=== PATIENT | male | born 1985 | race Caucasian/White ===

== ENCOUNTER → 2018-02-04 06:21 | Outpatient (CLI) | payer OTHER, SELFPAY ==
--- NOTE | 2018-02-04 18:52 | STRESSREP ---
Stress Test Report Exercise myocardial perfusion stress test. 32-year-old man with a history of chest pain. Stress protocol: Resting EKG demonstrates normal sinus rhythm with a rate of 64 bpm normal intervals and noted resting blood pressure is 120/88 mmHg. The patient exercised according to the regular Kishore protocol for total duration of 10 minutes and 31 seconds. The maximum heart rate attained was 173 bpm which was 91% of maximum predicted heart rate the maximum workload attained was 12.5 metabolic equivalents. The resting blood pressure is 120/88 mmHg with a peak blood pressure 140/84 mmHg. At rest and during exercise there were upsloping ST changes with no meet the criteria for ischemia. T-wave inversions were noted during recovery in lead III. Myocardial perfusion protocol. 14.6 mCi of technetium 99m sestamibi was injected at rest. Patient exercised according to the regular Kishore protocol for 10 minutes and 31 seconds. At peak exercise 44.7 mCi of technetium 99m sestamibi was injected stress images were obtained stress and rest images were reconstructed and compared in the short axis vertical long and horizontal long axis. Gated images were also obtained. Perfusion SPECT analysis: Review of the stress images demonstrate normal uptake of tracer noted in all areas of the myocardium. The resting images similarly demonstrate normal uptake of tracer noted in all areas of the myocardium. No reversibility is noted suggest ischemia. Gated SPECT analysis: The gated ejection fraction is noted to be 64%. Conclusion: Normal exercise myocardial perfusion stress test at a high workload. Preserved ejection fraction.
== END ==
PROVIDERS: Family Provider Family Medicine; PCP Family Medicine; Visit Provider Family Medicine
DX: R07.9 Chest pain, unspecified (principal)
CPT/HCPCS: 78452; 93017; A9500; A4216

== ENCOUNTER 2021-05-07 12:42 | Emergency (ER) | payer OTHER, SELFPAY ==
[2019-04-14 16:11] VITALS: BMI 33.6
[2021-05-07 12:42] VITALS: BP 105/70; PULSE 120; RESP 18; TEMP 37.6; O2SAT 100; BMI 34.5
--- NOTE | 2021-05-07 12:55 | EKG12_ITS ---
Test Reason : CHEST TIGHTNESS Blood Pressure : / mmHG Vent. Rate : 113 BPM Atrial Rate : 113 BPM P-R Int : 156 ms QRS Dur : 082 ms QT Int : 286 ms P-R-T Axes : 054 067 030 degrees QTc Int : 392 ms Sinus tachycardia Otherwise normal ECG Confirmed by JEANIE HERNANDEZ, SANTIAGO ([id number]), adhesive bandage making operator AJAY ROLLINS ([id number]) on 05/08/2021 10:40:03 AM Referred By: MR Confirmed By:SANTIAGO WARE MD
--- NOTE | 2021-05-07 13:34 | RAD_ITS ---
STUDY: X-RAY CHEST REASON FOR EXAM: Male, 36 years old. 2 day history of fever, chills and cough. TECHNIQUE: Single AP portable view of the chest. COMPARISON: None. FINDINGS: EKG electrodes are seen. The lungs are clear and expanded. There is no demonstrated pleural abnormality. Normal size heart. Normal mediastinum and hiram. Normal visualized pulmonary arteries. Normal visualized aortic arch and descending thoracic aorta. Normal visualized thoracic spine. Normal visualized ribs, clavicles, and shoulders. There is no demonstrated abnormality of the visualized soft tissue structures of the upper abdomen. RAD/Chest 1 View (Portable) IMPRESSION: Normal x-ray examination of the chest. Electronically Signed: Clinton Wilkinson MD at 14:50 EDT , Service support ,
[2021-05-07] MEDS: 0.9% Normal Saline 1,000 ML 999 ML IV (13:55)
[2021-05-07] MEDS: Ketorolac 15 MG/ML Vial IV (13:56)
[2021-05-07 14:02] VITALS: BP 113/77; PULSE 117; RESP 18; TEMP 39.8; O2SAT 97
[2021-05-07 14:07] LABS: Absolute Lymphocyte Count 0.53 X10^3/uL (0.83-4.51); Absolute Neutrophil Count 7.7 X10^3/uL (2.0-7.7); Basophil# 0.02 X10^3/uL; Basophil% 0.2 % (0-1); Hematocrit 44.7 % (40-54); Hemoglobin 15.4 g/dL (13.0-16.5); Lymphocyte # 0.53 X10^3/ul (0.83-4.51); Lymphocyte % 5.9 % (19-41); Mean Corp Hgb Conc 34.5 g/dL (32-36); Mean Corpuscular Hgb 30.5 pg (27.0-32.0); Mean Corpuscular Volume 88.5 fL (80-94); Monocyte% 7.8 % (0-10); NRBC Flagged by Analyzer 0 % (0-5); Neutrophil # 7.74 X10^3/uL (2.7-7.7); Neutrophil % 85.8 % (47-70); POSITIVE DIFFERENTIAL YES; Platelet Count 177 K/mm3 (150-450); RBC Distribution Width CV 12.5 % (11.6-14.6); RBC Distribution Width SD 41.3 fl (35.1-43.9); Red Blood Count 5.05 M/mm3 (4.6-6.2)
[2021-05-07 14:08] LABS: Differential Indicated SCAN CRITERIA MET
[2021-05-07 14:25] LABS: ALB/GLOB Ratio 0.9 RATIO (0.9-2.4); AST(SGOT) 40 U/L (15-37); Alanine Aminotransfer ALT/SGPT 69 U/L (16-61); Albumin, Serum 3.8 g/dL (3.2-5.0); Alkaline Phosphatase 64 U/L (45-117); Anion Gap 5 (5-15); BUN 12 mg/dL (7-18); BUN/Creat Ratio 9.3 RATIO (10-20); Calcium,Total 8.7 mg/dL (8.5-10.1); Chloride 98 mmol/L (98-107); Creatinine, Serum 1.29 mg/dL (0.70-1.30); EST Glomerular Filtration Rate 68 mL/min (>60); Est Glom Filt Rate - Afr Amer 82 mL/min (>60); Estimated Creatinine Clearance 85.94 ml/min; Globulin 4.1 g/dL (2.2-4.2); Glucose 118 mg/dL (74-106); Potassium 3.9 mmol/L (3.5-5.1); Protein, Total 7.9 g/dL (6.4-8.2); Sodium Level 132 mmol/L (136-145)
[2021-05-07 14:30] LABS: Lactic Acid 1.3 mmol/L (0.4-1.9)
[2021-05-07 15:00] VITALS: BP 106/69; PULSE 101; RESP 18; TEMP 38.7; O2SAT 96
--- NOTE | 2021-05-07 15:12 | EX.ED.DYSGE1 ---
HPI History of Present Illness Chief Complaint: General Illness Narrative Narrative: Patient presenting for evaluation secondary to a febrile illness. Patient states that over the course of the last 3 to 4 days he has been dealing with fevers that have been increasing in temperature, T-max was 103. States its been associated with frequent cough that is nonproductive, and a generalized headache. He denies any skin rashes. He does endorse a decreased appetite and some nausea but no vomiting. No diarrhea. No abdominal pain. No recent travel, no sick contacts. Patient denies any neck stiffness. Patient denies any history of immunosuppression, he does take weekly allergy shots. Patient states that he had a coronavirus test done over the weekend that was found to be negative. Has been taking Tylenol for treatment of his fevers, but has been continuing to have fevers despite this. Patient was at the primary care office today, they recommended that he come to the emergency department [facility] Medical History Seasonal allergies Home Medications doxycycline hyclate 100 mg PO BID #20 tab 05/07/21 [Rx Last Taken Unknown] Allergy/AdvReac Type Severity Reaction Status Date / Time ibuprofen Allergy Unknown Unknown Verified 05/07/21 12:45 Social History Smoking Status: Never smoker Smokeless tobacco user: chewing tobacco alcohol intake: current alcohol intake frequency: 0-[address] [facility] ED Constitutional Constitutional ED: Reports chills and fever(s) ENT ENT ED: Denies rhinorrhea Cardiovascular Cardiovascular: Denies chest pain Respiratory/Chest Respiratory/Chest: Reports dyspnea Gastrointestinal Gastrointestinal: Reports nausea Genitourinary Genitourinary ED: Denies dysuria or hematuria Musculoskeletal Musculoskeletal: Reports myalgias; Denies neck pain Integumentary Denies rash Neurologic Neurologic: Denies paresthesias or weakness Psychiatric Psychiatric: Denies depression Endocrine Endocrinology: Denies fatigue Allergic/Immunologic Allergic/Immunologic ED: Denies urticaria EXAM Physical Exam Const Vital Signs: 05/07/21 12:42 05/07/21 13:34 05/07/21 14:02 Temperature 99.6 F H 103.6 F H Temperature Source Oral Oral Pulse Rate 120 H 117 H Respiratory Rate 18 18 Respiratory Effort Normal Respiratory Pattern Normal Blood Pressure 105/70 113/77 Blood Pressure Mean 81 89 Pulse Ox 100 97 Oxygen Delivery Method Room Air Room Air 05/07/21 15:00 Temperature 101.7 F H Temperature Source Oral Pulse Rate 101 H Respiratory Rate 18 Respiratory Effort Respiratory Pattern Blood Pressure 106/69 Blood Pressure Mean 81 Pulse Ox 96 Oxygen Delivery Method Room Air Positive well nourished and well developed General Appearance ED: well developed and NAD; Negative for pallor HEENT Reports moist mucous membranes HEENT Narrative: Oropharynx is clear and moist, no evidence of posterior pharyngeal erythema Negative for trauma or tenderness Eyes EOMs intact bilaterally Neck no lymphadenopathy, supple and no JVD Neck Narrative: Negative Brudzinski, Kernig, jolt test no evidence of meningismus Chest Wall inspection of chest normal Resp normal respiratory effort and clear to auscultation bilaterally Cardio regular rhythm, no murmurs and peripheral pulses 2+ throughout Rate: other Other Details: Tachycardic GI normal to inspection, nondistended, normoactive bowel sounds, non-tender and no masses Palpation: soft Back/Spine normal to inspection Extremity normal to inspection General Extremety ED: Negative for tenderness Neuro oriented x3 and no sensory deficits noted Sensorium / Orientation: alert Motor Exam: strength 5/5 throughout Psych mental status grossly normal Skin no rashes or lesions noted General Skin Exam: Negative for jaundice or pallor Lesions: No lesion noted Rashes: No rashes noted MDM MDM MDM Narrative Medical decision making narrative: Patient presented secondary to a febrile illness. He was noted to be febrile and tachycardic upon arrival. IV was established patient was given Toradol, IV fluids and work-up was obtained. Patient has a normal white blood cell count with a neutrophilic predominance. Chemistry panel shows mild hyponatremia at 132, normal renal function. Liver panel was unremarkable. Chest x-ray by my personal review as well as radiology is negative. Repeat coronavirus test was obtained was found to be negative. Influenza test was obtained was found to be negative. Patient had improvement of his heart rate mild improvement of his symptoms on repeat evaluation. Patient's primary care was concerned about the possibility of a arbovirus, such as West Nile. While the patient does have a headache and a fever he does not have confusion or exposure that would make me think that this is the case. Likewise he does not have any history of tick engorgement, or target lesions. He does not have a presentation that would be consistent with meningitis. At this point I do not feel that the patient requires admission. Patient did complain of a cough and although he has a negative chest x-ray, doxycycline is a medication that would provide broad coverage should this be a Arbo borne infection or pneumonia. Patient will be sent home on a course of doxycycline. He was recommended continue conservative management. He was educated on signs and symptoms which to return. Lab Data Labs: Laboratory Results - last 24 hr 05/07/21 05/07/21 05/07/21 13:50 13:50 13:50 WBC 9.0 RBC 5.05 Hgb 15.4 Hct 44.7 MCV 88.5 MCH 30.5 MCHC 34.5 RDW Std Deviation 41.3 RDW Coeff of Anurag 12.5 Plt Count 177 MPV 9.0 Immature Gran % (Auto) 0.300 Neut % (Auto) 85.8 H Lymph % (Auto) 5.9 L [place] % (Auto) 7.8 Eos % (Auto) 0.0 Baso % (Auto) 0.2 Absolute Neuts (auto) 7.7 Absolute Lymphs (auto) 0.53 L Nucleated RBC % 0 Differential Comment COMMENT Sodium 132 L Potassium 3.9 Chloride 98 Carbon Dioxide 29.0 Anion Gap 5 BUN 12 Creatinine 1.29 Estim Creat Clear Calc 85.94 Est GFR (MDRD) Af Amer 82 Est GFR (MDRD) Non-Af 68 BUN/Creatinine Ratio 9.3 L Glucose 118 H Lactic Acid 1.3 Calcium 8.7 Total Bilirubin 0.80 AST 40 H ALT 69 H Alkaline Phosphatase 64 Total Protein 7.9 Albumin 3.8 Globulin 4.1 Albumin/Globulin Ratio 0.9 Radiography Chest X-Ray - ED: 1 View and Normal Diagnostic Testing: Radiology Impression Chest X-Ray 05/07/21 13:34 IMPRESSION: Normal x-ray examination of the chest. Electronically Signed: Clinton Wilkinson MD at 14:50 EDT , Service support , Discharge Plan Triage Chief Complaint: General Illness ED Provider: Mitch Carey Dx/Rx/DC Orders Clinical Impression: Acute febrile illness Instructions: ED FUO Adult Prescriptions: New doxycycline hyclate 100 mg tablet 100 mg PO BID Qty: 20 RF: 0 Primary Care Provider: Phan Alicia Referrals: Phan Alicia MD [Primary Care Provider] - 5-7 Days Disposition Disposition: Home, Self Care
[2021-05-07] MEDS: Acetaminophen 500 MG Tablet 1000 MG PO (15:25)
[2021-05-07] MEDS: Doxycycline 100 MG CAPSULE PO (15:25)
== END 2021-05-07 15:35 | disposition home or self-care (01) ==
PROVIDERS: Emergency Provider Emergency Medicine; PCP Family Medicine
DX: R50.9 Fever, unspecified (principal)
CPT/HCPCS: 71045; 80053; 83605; 85025; 87040; 87426; 87804; 93005; 96361; 96374; 99285; J7030

== ENCOUNTER 2021-05-08 00:05 | Inpatient (IN) | payer OTHER, SELFPAY ==
[2021-05-07 12:42] VITALS: BMI 34.5
[2021-05-08] VITALS (14 sets, daily range): BP systolic 105–143; BP diastolic 68–88; PULSE 70–132; RESP 16–22; TEMP 36.6–39.6; O2SAT 95–100; BMI 34.8; BMI 35.3
--- NOTE | 2021-05-08 | CYSPIN_PTH ---
PATIENT: TOMAS TAFOYA LOC: [facility] U#:[id number] AGE/SX: 36/M ROOM: [facility] RE05/08/[address]: Dr. Lobo Cardona MD : 1985 BED: 1 DIS: 05/09/2021 SPEC #: [id number] RECD: 05/08/21 12:02 STATUS: CARSON NINO #: [id number] TIERRA: 05/08/21 00:[address]: Lobo Cardona DEPT: CYTOLOGY RECD BY: Jose Medina ENTERED: 05/08/21 12:02 SP TYPE: CYSPIN FL OTHR DR: MD Dr. Lawrence Hubbard MD Dr. Scott Brown, MD Tissues: Cerebrospinal Fluid Procedures: Pap Stain (control) Special Stain Group II Cytospin Fluid HEADER OPERATION: Lumbar puncture PRE-OP DIAGNOSIS: Headaches, fever TISSUE SUBMITTED: Cerebrospinal fluid for cytology DIAGNOSIS CYTOLOGY Cerebrospinal fluid for cytology (cytospin): Negative for malignant cells. See comment. AM:charlotte 05/09/2021 COMMENT Polymorphous lymphocytes are identified. Clinical correlation is suggested. CYTOLOGY STUDY Slides are reviewed. CYTOLOGY GROSS Received is 0.5 ml of clear fluid labeled with the patient's name and and designated per the requisition as CSF. Submitted for cytology preparation. / charlotte 05/08/2021 TC:5 CPT: 69267
--- NOTE | 2021-05-08 01:11 | EX.ED.DYSGE1 ---
HPI History of Present Illness Chief Complaint: Fever Narrative Narrative: Patient presents with fever. He was seen earlier this afternoon for fevers. T-max has been 104-1/2. These been going on for 3 to 4 days. He is allergic to ibuprofen so he is taking Tylenol. Had a full work-up here and discharged on doxycycline this afternoon. Work-up was negative including Covid testing influenza testing and chest x-ray. He has a frontal achy headache. He noticed he had a red painful lesion on his right inner thigh in the shower this evening. He has never had that before. No bites. Comes in as his temperatures remain elevated and he does not feel well. [facility] Medical History Seasonal allergies Home Medications doxycycline hyclate 100 mg PO BID #20 tab 05/07/21 [Rx Last Taken Unknown] ergocalciferol (vitamin D2) [Vitamin D2] 1,000 unit PO DAILY 05/08/21 [History Last Taken Unknown] Allergy/AdvReac Type Severity Reaction Status Date / Time ibuprofen Allergy Unknown Unknown Verified 05/08/21 00:05 Social History (Updated 05/08/21 @ 02:18 by Barb Moralez NP-C) household members: spouse housing: house Smoking Status: Never smoker Smokeless tobacco user: chewing tobacco alcohol intake: current alcohol intake frequency: 0-2 drinks per day substance use type: does not use ROS ROS ED ROS Narrative ROS General: See HPI Eyes: Denies visual changes, blurred vision, double vision ENT: Denies ear pain, rhinorrhea, sore throat Cardiovascular: Denies chest pain, palpitations, heart racing Respiratory: Denies dyspnea, cough, sputum, dyspnea on exertion, orthopnea,PND GI: Denies abdominal pain, nausea, vomiting, diarrhea, constipation, melena : Denies dysuria, hematuria, frequency Musculoskeletal: Denies myalgias, arthralgias, neck pain, back pain Skin: See HPI Neuro: Positive weakness of frontal achy headache. Psych: Denies depression, anxiety Endo: Denies polyuria, polydipsia, polyphagia Heme: Denies easy bruising, easy bleeding, lymphadenopathy Allergy: Denies hives, swelling EXAM Physical Exam Narrative Exam Narrative: Vital signs reviewed General: Well-nourished well-developed Head: Normocephalic atraumatic Eyes: Pupils equal round and reactive to light extraocular movements intact ENT: TMs clear no hemotympanum no trauma Neck: Nontender full range of motion Cardiovascular: Regular tachycardia with normal rhythm no murmurs normal S1-S2 Respiratory: No distress clear to auscultation bilaterally chest nontender Abdomen: Soft nontender nondistended normal bowel sounds no masses Back: Nontender no CVA tenderness Extremities: Nontender active range of motion ?4 extremities no trauma Skin: Right inner thigh has a circular cellulitic region. It measures 4 inches x 3 inches. No abscess noted. Neuro alert oriented cranial nerves II through XII intact normal strength sensation reflexes Const Vital Signs: 05/08/21 00:06 05/08/21 00:27 05/08/21 02:04 Temperature 100.8 F H 103.3 F H 103.1 F H Temperature Source Temporal Oral Oral Pulse Rate 132 H 124 H 117 H Respiratory Rate 21 H 22 H 22 H Blood Pressure 143/83 H 134/88 H 117/87 H Blood Pressure Mean 103 103 97 Pulse Ox 98 100 97 Oxygen Delivery Method Room Air Room Air Room Air MDM MDM MDM Narrative Medical decision making narrative: Patient given IV fluids. He is tachycardic and febrile. Given Toradol and Tylenol. Repeat lab work obtained. Given Zosyn for his right inner thigh cellulitis. Lab work shows a white count of 10.5. Neutrophils are 89.8. Sodium 132. But after treatment. At this time the patient has fever with cellulitis in the right thigh. Will be admitted and discussed with the hospitalist Lab Data Labs: Laboratory Results - last 24 hr 05/08/21 05/08/21 01:20 01:20 WBC 10.5 RBC 4.49 L Hgb 13.7 Hct 39.6 L MCV 88.2 MCH 30.5 MCHC 34.6 RDW Std Deviation 39.8 RDW Coeff of Anurag 12.3 Plt Count 153 MPV 9.0 Immature Gran % (Auto) 0.400 Neut % (Auto) 89.8 H Lymph % (Auto) 3.5 L [place] % (Auto) 6.0 Eos % (Auto) 0.0 Baso % (Auto) 0.3 Absolute Neuts (auto) 9.4 H Absolute Lymphs (auto) 0.37 L Nucleated RBC % 0 Sodium 132 L Potassium 4.4 Chloride 100 Carbon Dioxide 25.0 Anion Gap 7 BUN 11 Creatinine 1.07 Estim Creat Clear Calc 103.61 Est GFR (MDRD) Af Amer 102 Est GFR (MDRD) Non-Af 84 BUN/Creatinine Ratio 10.3 Glucose 137 H Calcium 8.5 Discharge Plan Triage Chief Complaint: Fever ED Provider: Jj Arana Dx/Rx/DC Orders Clinical Impression: Acute febrile illness, Cellulitis, Sepsis Prescriptions: No Action doxycycline hyclate 100 mg tablet 100 mg PO BID Qty: 20 RF: 0 Vitamin D2 1,000 unit Capsule 1,000 unit PO DAILY RF: 0 Primary Care Provider: Phan Alicia Referrals: Phan Alicia MD [Primary Care Provider] -
[2021-05-08 01:25] LABS: Absolute Lymphocyte Count 0.37 X10^3/uL (0.83-4.51); Absolute Neutrophil Count 9.4 X10^3/uL (2.0-7.7); Basophil# 0.03 X10^3/uL; Basophil% 0.3 % (0-1); Hematocrit 39.6 % (40-54); Hemoglobin 13.7 g/dL (13.0-16.5); Lymphocyte # 0.37 X10^3/ul (0.83-4.51); Lymphocyte % 3.5 % (19-41); Mean Corp Hgb Conc 34.6 g/dL (32-36); Mean Corpuscular Hgb 30.5 pg (27.0-32.0); Mean Corpuscular Volume 88.2 fL (80-94); Monocyte# 0.63 X10^3/uL; NRBC Flagged by Analyzer 0 % (0-5); Neutrophil # 9.44 X10^3/uL (2.7-7.7); Neutrophil % 89.8 % (47-70); POSITIVE DIFFERENTIAL YES; Platelet Count 153 K/mm3 (150-450); RBC Distribution Width CV 12.3 % (11.6-14.6); RBC Distribution Width SD 39.8 fl (35.1-43.9); Red Blood Count 4.49 M/mm3 (4.6-6.2); White Blood Count 10.5 K/mm3 (4.4-11.0)
[2021-05-08 01:27] LABS: Differential Indicated SCAN CRITERIA MET
[2021-05-08 01:40] LABS: Anion Gap 7 (5-15); BUN 11 mg/dL (7-18); BUN/Creat Ratio 10.3 RATIO (10-20); Calcium,Total 8.5 mg/dL (8.5-10.1); Chloride 100 mmol/L (98-107); Creatinine, Serum 1.07 mg/dL (0.70-1.30); EST Glomerular Filtration Rate 84 mL/min (>60); Est Glom Filt Rate - Afr Amer 102 mL/min (>60); Estimated Creatinine Clearance 103.61 ml/min; Glucose 137 mg/dL (74-106); Potassium 4.4 mmol/L (3.5-5.1); Sodium Level 132 mmol/L (136-145)
[2021-05-08] MEDS: Ketorolac 30 MG/ML Syringe IV (01:58)
[2021-05-08] MEDS: Acetaminophen 500 MG Tablet 1000 MG PO (02:02)
[2021-05-08] MEDS: 0.9% Normal Saline 1,000 ML 999 ML IV ×3 (02:14→04:54)
--- NOTE | 2021-05-08 02:14 | PCM.HP.STD ---
Documented by User: CAIO Ramires 05/08/21 02:41 HPI - General HPI Narrative TOMAS TAFOYA, is a 36 M who presents with ongoing fevers. Patient states over the past 3 days he has been having fevers up to 103. Patient states during this time he has also been having severe headaches with photosensitivity. Patient states that the pain in his head is located right behind his eyes and is 10 out of 10. Patient reports noticing a red warm raised area to his right inner thigh today when he was getting ready to take a shower that he had noted not noticed before. Patient denies being bit by a bug however patient's reports that they have been working outside quite a bit lately and had noticed ticks on their clothing but have not noticed any ticks on their skin. Patient complains also complains of fatigue and one episode of diarrhea yesterday. Patient denies chest pain, shortness of breath, nausea, vomiting. [facility] Medical History Seasonal allergies Home Medications doxycycline hyclate 100 mg PO BID #20 tab 05/07/21 [Rx Last Taken Unknown] ergocalciferol (vitamin D2) [Vitamin D2] 1,000 unit PO DAILY 05/08/21 [History Last Taken Unknown] Allergy/AdvReac Type Severity Reaction Status Date / Time ibuprofen Allergy Unknown Unknown Verified 05/08/21 00:05 other (No marked maternal or paternal medical history including heart disease, diabetes, cancer) Social History (Updated 05/08/21 @ 02:18 by CAIO Ramires) household members: spouse housing: house Smoking Status: Never smoker Smokeless tobacco user: chewing tobacco alcohol intake: current alcohol intake frequency: 0-2 drinks per day substance use type: does not use ROS Constitutional Constitutional: Reports chills, fatigue, fever(s) and headache(s); Denies anorexia Cardiovascular Cardiovascular: Denies chest pain, edema or palpitations Respiratory/Chest Respiratory/Chest: Reports cough; Denies shortness of breath at rest or shortness of breath with exertion Gastrointestinal Gastrointestinal: Denies abdominal pain, constipation, diarrhea, nausea or vomiting Genitourinary Genitourinary: Denies dysuria Musculoskeletal Musculoskeletal: Denies back pain, extremity pain, joint pain or joint stiffness Integumentary Integumentary: Denies dry skin Neurologic Neurologic: Denies abnormal gait, abnormal speech, confusion, dizziness or focal weakness Psychiatric Psychiatric: Denies anxiety or depression Endocrine Endocrinology: Denies change in body appearance Hematologic/Lymphatic Hematologic/Lymphatic: Denies easy bleeding or easy bruising Vital Signs Vital Signs Vital Signs: 05/08/21 00:06 05/08/21 00:27 05/08/21 02:04 Temperature 100.8 F H 103.3 F H 103.1 F H Temperature Source Temporal Oral Oral Pulse Rate 132 H 124 H 117 H Respiratory Rate 21 H 22 H 22 H Blood Pressure 143/83 H 134/88 H 117/87 H Blood Pressure Mean 103 103 97 Pulse Ox 98 100 97 Oxygen Delivery Method Room Air Room Air Room Air Weight Weight: 250 lb Body Mass Index (BMI) 34.8 Physical Exam Const alert and oriented x3 General Appearance: cooperative HEENT normocephalic and head/scalp atraumatic Face and Sinus: facial tenderness bilateral (Above eyes) Neck no lymphadenopathy General: trachea midline, tenderness and meningeal signs Resp normal respiratory effort, normal air movement and clear to auscultation bilaterally Effort and Inspection: tachypneic Cardio regular rate, regular rhythm, S1 normal heart sound and S2 normal heart sound Rate: tachycardic GI normal to inspection, nondistended, normoactive bowel sounds, soft to palpation and non-tender Extremity full ROM, normal capillary refill and no pedal edema Peripheral Pulses: Yes pulses 2+ throughout Right Lower Extremity: upper leg Positive for inspection (Red raised warm area to right inner thigh, marked with skin marker) and palpation (Tender with palpation) Skin Rashes: rashes noted Warm raised red area to inner aspect of right thigh patch symmetrical red oval Yes soft dry mild cellulitis Neuro no focal motor deficits and no sensory deficits noted Speech: speech normal Motor Exam: strength 5/5 throughout Psych thought process normal, cooperative and affect normal Appearance: appropriate Results Lab / Micro Data Result Diagrams: 05/08/21 01:20 05/08/21 01:20 Labs: Laboratory Results - last 24 hr 05/08/21 05/08/21 01:20 01:20 WBC 10.5 RBC 4.49 L Hgb 13.7 Hct 39.6 L MCV 88.2 MCH 30.5 MCHC 34.6 RDW Std Deviation 39.8 RDW Coeff of Anurag 12.3 Plt Count 153 MPV 9.0 Immature Gran % (Auto) 0.400 Neut % (Auto) 89.8 H Lymph % (Auto) 3.5 L [place] % (Auto) 6.0 Eos % (Auto) 0.0 Baso % (Auto) 0.3 Absolute Neuts (auto) 9.4 H Absolute Lymphs (auto) 0.37 L Nucleated RBC % 0 Sodium 132 L Potassium 4.4 Chloride 100 Carbon Dioxide 25.0 Anion Gap 7 BUN 11 Creatinine 1.07 Estim Creat Clear Calc 103.61 Est GFR (MDRD) Af Amer 102 Est GFR (MDRD) Non-Af 84 BUN/Creatinine Ratio 10.3 Glucose 137 H Calcium 8.5 Assessment & Plan Assessment/Plan (1) Cellulitis: QUALIFIERS: Laterality: right Site of cellulitis: extremity Site of cellulitis of extremity: lower extremity Qualified Code(s): L03.115 - Cellulitis of right lower limb (2) Headache: QUALIFIERS: Headache chronicity pattern: acute headache Headache type: unspecified Intractability: intractable Qualified Code(s): R51.9 - Headache, unspecified PLAN: 1. Headache -Admit to PCU for cardiac monitoring -Due to ocular migraine and neck stiffness will evaluate for meningitis -Due to consistent ongoing headache will obtain CT head without contrast, would consider MRI -Request lumbar puncture by interventional radiology, lab testing ordered including enterovirus, HSV, V zoster and West Nile. -Procalcitonin ordered -Will initiate dexamethasone, will obtain hemoglobin A1c prior to initiation -Vancomycin and ceftriaxone ordered pending results of lumbar puncture and blood cultures -Infectious disease consulted -Physical therapy to evaluate and treat 2. Cellulitis -CBC and CMP daily -Vancomycin and ceftriaxone ordered pending results of lumbar puncture and blood cultures -Marked redness outlined with skin marking pen on admission and with significant changes DVT prophylaxis-not indicated This patient was seen by Barb Moralez NP-C under the supervision of Dr. Rob. Documented by User: Dr. Gayle Rob MD 05/08/21 02:42 [facility] Medical History Seasonal allergies Home Medications doxycycline hyclate 100 mg PO BID #20 tab 05/07/21 [Rx Last Taken Unknown] ergocalciferol (vitamin D2) [Vitamin D2] 1,000 unit PO DAILY 05/08/21 [History Last Taken Unknown] Allergy/AdvReac Type Severity Reaction Status Date / Time ibuprofen Allergy Unknown Unknown Verified 05/08/21 00:05 Social History (Updated 05/08/21 @ 02:18 by Barb Moralez NP-C) household members: spouse housing: house Smoking Status: Never smoker Smokeless tobacco user: chewing tobacco alcohol intake: current alcohol intake frequency: 0-2 drinks per day substance use type: does not use Results Lab / Micro Data Result Diagrams: 05/08/21 01:20 05/08/21 01:20
--- NOTE | 2021-05-08 02:25 | CT_ITS ---
STUDY: CT BRAIN WITHOUT CONTRAST REASON FOR EXAM: Male, 36 years old. Headache. TECHNIQUE: Transaxial CT imaging of the brain was performed without administration of intravenous contrast material. Individualized dose optimization techniques were used for this CT. COMPARISON: No relevant priors. FINDINGS: No evidence of intracranial hemorrhage, mass, infarct or hydrocephalus. No skull fracture. Visualized paranasal sinuses and mastoid air cells patent. Visualized extracranial soft tissues unremarkable. ASPECTS [address]/Brain/Head without Contrast IMPRESSION: Negative CT brain without contrast. Electronically Signed: Dandy Tolentino MD at 3:18 EDT Tel , Service support ,
[2021-05-08] MEDS: Morphine 2 MG/ML Syringe IV (03:18)
[2021-05-08 03:30] LABS: Procalcitonin 1.42 ng/mL (0.00-0.09)
[2021-05-08] MEDS: 0.9% Normal Saline 1,000 ML 150 ML IV ×2 (04:54→17:41)
[2021-05-08 05:26] LABS: Absolute Lymphocyte Count 0.43 X10^3/uL (0.83-4.51); Absolute Neutrophil Count 7.2 X10^3/uL (2.0-7.7); Basophil# 0.02 X10^3/uL; Basophil% 0.2 % (0-1); Hematocrit 36.9 % (40-54); Hemoglobin 12.3 g/dL (13.0-16.5); Lymphocyte # 0.43 X10^3/ul (0.83-4.51); Lymphocyte % 5.3 % (19-41); Mean Corp Hgb Conc 33.3 g/dL (32-36); Mean Corpuscular Hgb 30.1 pg (27.0-32.0); Mean Corpuscular Volume 90.2 fL (80-94); Mean Platelet Vol. 9.4 fl (6.2-12.0); Monocyte# 0.43 X10^3/uL; Monocyte% 5.3 % (0-10); NRBC Flagged by Analyzer 0 % (0-5); Neutrophil # 7.18 X10^3/uL (2.7-7.7); Neutrophil % 88.8 % (47-70); POSITIVE DIFFERENTIAL YES; Platelet Count 145 K/mm3 (150-450); RBC Distribution Width CV 12.4 % (11.6-14.6); RBC Distribution Width SD 40.7 fl (35.1-43.9); Red Blood Count 4.09 M/mm3 (4.6-6.2); White Blood Count 8.1 K/mm3 (4.4-11.0)
[2021-05-08 05:27] LABS: Differential Indicated SCAN CRITERIA MET
[2021-05-08 05:36] LABS: Partial Thromboplast Time 40.8 Seconds (24.1-36.2)
[2021-05-08 05:43] LABS: ALB/GLOB Ratio 0.9 RATIO (0.9-2.4); AST(SGOT) 50 U/L (15-37); Alanine Aminotransfer ALT/SGPT 77 U/L (16-61); Alkaline Phosphatase 54 U/L (45-117); Anion Gap 7 (5-15); BUN 10 mg/dL (7-18); BUN/Creat Ratio 8.2 RATIO (10-20); Calcium,Total 7.7 mg/dL (8.5-10.1); Chloride 105 mmol/L (98-107); Creatinine, Serum 1.22 mg/dL (0.70-1.30); EST Glomerular Filtration Rate 72 mL/min (>60); Est Glom Filt Rate - Afr Amer 87 mL/min (>60); Estimated Creatinine Clearance 90.87 ml/min; Globulin 3.2 g/dL (2.2-4.2); Glucose 130 mg/dL (74-106); Potassium 3.6 mmol/L (3.5-5.1); Protein, Total 6.2 g/dL (6.4-8.2); Sodium Level 137 mmol/L (136-145)
[2021-05-08] MEDS: dexAMETHasone 10 MG/ML Vial IV ×2 (05:44→12:10)
[2021-05-08] MEDS: Famotidine 20 MG Tablet PO ×2 (05:44→21:21)
[2021-05-08] MEDS: 0.9% Saline Lock 10 ML Syringe IV ×2 (05:44→10:23)
--- NOTE | 2021-05-08 05:55 | RAD_ITS ---
PROCEDURE: Fluoroscopic guided Lumbar Puncture. DATE: 05/08/2021. CLINICAL INDICATION: Headaches. Fever. PHYSICIAN: Clinton Wilkinson M.D. MEDICATIONS: 1% lidocaine administered subcutaneously for local anesthesia. ACCESS SITE: Lower posterior back. NEEDLE: 22-gauge spinal needle. SPECIMEN: Approximately 10 mL clear]CSF fluid. FLUOROSCOPY TIME (if supplied): (0:30) minutes/seconds. No images were obtained. COMPLICATIONS: None immediate. The risks, benefits, and alternatives to the procedure were explained to the patient. The specific risks of bleeding, infection, and neurovascular injury were detailed and accepted. Witnessed informed consent was obtained. The patient was placed on the fluoroscopic table in the prone position. The level for needle entry was determined and marked. The overlying skin was cleaned and prepped in the usual sterile fashion. 2% lidocaine was administered subcutaneously for local anesthesia. Under fluoroscopic guidance a 22-gauge spinal needle was advanced. The thecal sac was entered at the L3- L4 vertebral level. The inner stylet was removed. There was spontaneous flow of clear CSF fluid. The patient was placed in a reversed Trendelenburg position. Approximately 10 mL of cerebrospinal fluid was collected using gravity. The specimen was collected and submitted to the laboratory for further evaluation. The needle was withdrawn,. Hemostasis was achieved and a sterile dressing placed. The patient tolerated the procedure well without any immediate complications. The patient was placed supine with head elevated and returned to the floor in stable condition. RAD/Dx Lumbar Puncture w/IMG Guide IMPRESSION: Successful fluoroscopic-guided lumbar puncture. Electronically Signed: Clinton Wilkinson MD at 10:10 EDT , Service support ,
--- NOTE | 2021-05-08 06:05 | PCM.RX.CS ---
Consult Pharmacy has been consulted to manage selected antiobiotic: Vancomycin Type of Consult: New start Suspected Infection: Meningitis Prior Doses of Antibiotics Received/Current Regimen: Medications Vancomycin HCl 2,000 mg/ (Sodium Chloride) 540 mls @ 250 mls/hr IV X1 ONE Stop: 05/08/21 07:09 Last Admin: 05/08/21 05:44 Dose: 250 mls/hr Vancomycin HCl 1,500 mg/ (Sodium Chloride) 530 mls @ 250 mls/hr IV Q8H [facility]PE Labs: Sodium 137 mmol/L (136-145) 05/08/21 04:58 Potassium 3.6 mmol/L (3.5-5.1) 05/08/21 04:58 Chloride 105 mmol/L (98-107) 05/08/21 04:58 Carbon Dioxide 25.0 mmol/L (21.0-32.0) 05/08/21 04:58 Anion Gap 7 (5-15) 05/08/21 04:58 BUN 10 mg/dL (7-18) 05/08/21 04:58 Creatinine 1.22 mg/dL (0.70-1.30) 05/08/21 04:58 Est GFR (MDRD) Af Amer 87 mL/min (>60) 05/08/21 04:58 Est GFR (MDRD) Non-Af 72 mL/min (>60) 05/08/21 04:58 BUN/Creatinine Ratio 8.2 RATIO (10-20) L 05/08/21 04:58 Glucose 130 mg/dL (74-106) H 05/08/21 04:58 Weight used for dosin.8 kg Estimated Creatinine Clearance: 104 Goal Trough: 15-20 mcg/mL Pharmacy Plan for Drug Dosing: Pharmacy Service will continue to monitor and adjust dosing as required. Follow-Up Labs: Trough Vancomycin Labs to be done on [date and time ordered]: 05/09/21 @0500
--- NOTE | 2021-05-08 06:48 | RAD.NOTE ---
Per Dr. Rob, wilfredo to do 0700am CXR w/ LP
[2021-05-08 07:18] LABS: Hemoglobin A1c 5.3 % (3.8-5.6)
--- NOTE | 2021-05-08 09:14 | RAD_ITS ---
STUDY: X-RAY CHEST REASON FOR EXAM: Male, 36 years old. Cough, fever TECHNIQUE: PA and lateral views of the chest. COMPARISON: Comparison is made with prior study dated 05/07/2021. FINDINGS: There now is evidence of increased markings at the lung bases more prominent on the right side. This may represent either early infiltrates and/or atelectasis. Follow-up is recommended. There is no demonstrated pleural abnormality. Normal size heart. Normal mediastinum and hiram. Normal visualized pulmonary arteries. Normal visualized aortic arch and descending thoracic aorta. Normal visualized thoracic spine. Normal visualized ribs, clavicles, and shoulders. There is no demonstrated abnormality of the visualized soft tissue structures of the upper abdomen. RAD/Chest PA and Lateral IMPRESSION: Increased markings at the lung bases more prominent on the right side suggestive of either atelectasis and/or early infiltrates. Electronically Signed: Clinton Wilkinson MD at 9:32 EDT , Service support ,
--- NOTE | 2021-05-08 09:57 | NURSING ---
tolerated lp well, slight ache to back ice pack given for comfort and compression, vs 79 her, 98po2, 16 resp, 108/69 bp, report called to karen teaching and handout on lp given and reviewed with patient
[2021-05-08 10:02] LABS: Cytology, Body Fluid / CSF SEE PATHOLOGY REPORT
--- NOTE | 2021-05-08 10:20 | CASEMGMT ---
ELVIA ARIAS assessment: Face to Face with patient for initial transition planning/care coordination assessment. ELVIA ARIAS introduced self and role at [facility], pt voices understanding and consents to assessment. Pt is sitting up in bed in no distress. Pt is A/Ox4 and answers all questions appropriately. Care providers, pharmacy, and demographics verified. Presentation: Pt c/o fever and rash, seen in ED previously for same Admitting dx: Sepsis, cellulitis PCP: Ravin Specialists: ANGEL LUIS Singh Preferred Pharmacy: [facility] Insurance: MMO Prescription Benefit: MMO Living Will/HPOA: Pt states does not have LW/HPOA and declines AD info. LNOK: Danette Kim, Living Arrangements: Pt states lives with in 1 story home and states no concerns at home. Pt is independent with ADL's. Transportation: Pt states drives self and states no transportation concerns. DME/HHC: Pt states no current DME or need for any. Pt states no hx of HHC or SNF. Pt states no concerns with going home at time of discharge. 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 Pt states does not smoke cigarettes but does drink ETOH occasionally. Pt states no further concerns/needs. CM to follow for any further discharge planning/needs. Advised pt to ask for CM if any further questions/concerns/needs arise, voices understanding. Pt Goal: Home Plan: [place] ELVIA ARIAS
[2021-05-08 10:55] LABS: Glucose Spinal Fluid 78 mg/dL (40-75)
[2021-05-08 11:43] LABS: Appearance CSF (character) CLEAR (Clear); CSF Color COLORLESS (Colorless); Tested Tube # 3
[2021-05-08 11:44] LABS: RBC Count, Spinal Fluid 4 /mm-3 (None seen)
[2021-05-08 11:45] LABS: White Count, CSF 0 /mm-3 (0 - 5)
[2021-05-08 12:10] LABS: Lymphocytes,CSF 100 % (40 - 80)
[2021-05-08 12:12] LABS: Body Fluid QC Type(s) BF2Q,BF3Q
--- NOTE | 2021-05-08 13:04 | PN.HOSP_ITS ---
Documented by User: Elliot BROWN 05/08/21 13:07 Hospitalist Note Patient is a 36-year-old male who presented to the ED at [facility] on 05/08/2021 with a chief complaint of ongoing fevers, headache, ocular pain and a rash on his right inner thigh. Patient was admitted for acute sepsis due to right lower extremity cellulitis versus possible acute meningitis. Patient has been initiated on IV Decadron, IV Rocephin and IV vancomycin. Lumbar puncture with CSF cultures/testing ordered and pending. Infectious dis eases following. Patient seen by Elliot Valderrama PA-C, under the supervision of Dr. Cardona. Documented by User: Dr. Lobo Cardona MD 05/08/21 15:22 Hospitalist Note Seen and examined. Patient symptoms started with generalized body aches, nonspecific tiredness on Thursday after he played golf on the weekend. This further led to headache, generalized weakness and then developed dry cough. He noticed rash yesterday. Patient fever was noted 103 earlier in the afternoon and was sent home on doxycycline 100 mg p.o. twice daily. Chest x-ray reported normal. Patient came back about 1 AM on day of admission was admitted with temperature 104.5. Patient also felt headache and pain behind right eye. On physical exam General: Alert, Oriented x3, Cooperative HEENT: Mild tenderness over maxillary sinus. Atraumatic, PERRLA, EOMI, Normocephalic Oral: No Gingival or Mucosal Lesions/ Ulcerations. No erythema on posterior pharynx Neck: Supple, No JVD, Negative Carotid Bruits Lungs: Air entry equal in bilateral lung bases. No crepitation/rhonchi Cardiovascular: Regular rate, Regular Rhythm, Normal S1, Normal S2, No murmurs Abdomen: Bowel Sounds Present, Soft, Non Tender, Non-Distended : No renal angle tenderness. No suprapubic tenderness. Extremities: No edema, Capillary Refill Less than 3 Seconds Skin: No rashes, No breakdown Musculoskeletal: No Tenderness to Palpation of Joints or Extremities Neurological: Cranial nerves II-XII grossly intact, Deep Tendon Reflexes 2+/4 and Symmetrical, no obvious meningeal signs Psych/Mental Status: Normal Affect, Appropriate. Patient had fluoroscopy guided lumbar puncture which showed RBC 4, WBC 0, lymphocytes, glucose 78, total protein 71. CSF Gram stain does not show organism. CSF culture, Lyme serology, COVID-19 PCR West Nile RNA enterovirus and HSV 1 and 2 are pending. Procalcitonin elevated Seen by ID. Probably viral source exact source unclear. Lyme serology was ordered. Acyclovir stopped. Vancomycin ceftriaxone to continue.
--- NOTE | 2021-05-08 13:45 | CON.PCM.ID_ITS ---
Assessment & Plan Assessment/Plan (1) Acute febrile illness: PLAN: Unclear source. With lymphopenia, body aches, fever, headache, diarrhea, will check covid pcr. Did have covid and has been vaccinated. Rapid covid Ag was neg. With rash on leg, will check Lyme disease, though it may be too early in disease to seroconvert. CSF wbc was 0, so no evidence of meningitis. Will stop acyclovir, cont vanc/ceftriaxone for now. Feeling better. Thank you, will follow, d/w primary team. HPI Consult Data Date of Consult: 05/08/21 HPI Narrative HPI Narrative: TOMAS TAFOYA, is a 36 M who presented 05/07 with sx starting 05/05 which diffuse body aches, high fever, severe headache behind eyes. Mild dry cough, one episode of diarrhea, some loss of appetite, no joint swelling. No sick contacts. No change in taste or smell. Had covid in September, vaccinated with 2 doses in February. Came to ED, admitted, LP done, on vanc/ceftriaxone/acyclovir/dex. Noticed R thigh redness/induration/mild tenderness. Feeling better today, redness much improved. Full ROS performed and neg except as noted above [facility] Medical History Seasonal allergies Home Medications doxycycline hyclate 100 mg PO BID #20 tab 05/07/21 [Rx Last Taken Unknown] ergocalciferol (vitamin D2) [Vitamin D2] 1,000 unit PO DAILY 05/08/21 [History Last Taken Unknown] Allergy/AdvReac Type Severity Reaction Status Date / Time ibuprofen Allergy Unknown Unknown Verified 05/08/21 00:05 Social History (Updated 05/08/21 @ 02:18 by CAIO Ramires) household members: spouse housing: house Smoking Status: Never smoker Smokeless tobacco user: chewing tobacco alcohol intake: current alcohol intake frequency: 0-2 drinks per day substance use type: does not use Physical Exam Const alert, oriented x3 and no apparent distress General Appearance: cooperative Exam Limitations: no limitations HEENT normocephalic and head/scalp atraumatic Eyes PERRL and EOMs intact bilaterally Neck supple and No nodes Lymph Lymphatic: no lymphadenopathy noted Resp normal air movement and clear to auscultation bilaterally Cardio regular rate and regular rhythm GI normal to inspection, nondistended, normoactive bowel sounds Extremity no clubbing, cyanosis or edema Skin Skin Narrative: fading erythema on R anterior thigh, no induration, no drainage Neuro CN's II-XII intact bilaterally Lab / Micro Data Result Diagrams: 05/08/21 04:58 05/08/21 04:58 Labs: Laboratory Results - last 24 hr 05/08/21 05/08/21 05/08/21 01:20 01:20 01:20 WBC 10.5 RBC 4.49 L Hgb 13.7 Hct 39.6 L MCV 88.2 MCH 30.5 MCHC 34.6 RDW Std Deviation 39.8 RDW Coeff of Anurag 12.3 Plt Count 153 MPV 9.0 Immature Gran % (Auto) 0.400 Neut % (Auto) 89.8 H Lymph % (Auto) 3.5 L [place] % (Auto) 6.0 Eos % (Auto) 0.0 Baso % (Auto) 0.3 Absolute Neuts (auto) 9.4 H Absolute Lymphs (auto) 0.37 L Nucleated RBC % 0 APTT Sodium 132 L Potassium 4.4 Chloride 100 Carbon Dioxide 25.0 Anion Gap 7 BUN 11 Creatinine 1.07 Estim Creat Clear Calc 103.61 Est GFR (MDRD) Af Amer 102 Est GFR (MDRD) Non-Af 84 BUN/Creatinine Ratio 10.3 Glucose 137 H Hemoglobin A1c 5.3 Calcium 8.5 Total Bilirubin AST ALT Alkaline Phosphatase Total Protein Albumin Globulin Albumin/Globulin Ratio Procalcitonin CSF Appearance CSF Color CSF WBC CSF RBC CSF Cell Count Tube # CSF Total Cell Counted CSF Lymphocytes CSF Comment CSF Glucose CSF Total Protein 05/08/21 05/08/21 05/08/21 02:55 04:58 04:58 WBC 8.1 RBC 4.09 L Hgb 12.3 L Hct 36.9 L MCV 90.2 MCH 30.1 MCHC 33.3 RDW Std Deviation 40.7 RDW Coeff of Anurag 12.4 Plt Count 145 L MPV 9.4 Immature Gran % (Auto) 0.400 Neut % (Auto) 88.8 H Lymph % (Auto) 5.3 L [place] % (Auto) 5.3 Eos % (Auto) 0.0 Baso % (Auto) 0.2 Absolute Neuts (auto) 7.2 Absolute Lymphs (auto) 0.43 L Nucleated RBC % 0 APTT 40.8 H Sodium Potassium Chloride Carbon Dioxide Anion Gap BUN Creatinine Estim Creat Clear Calc Est GFR (MDRD) Af Amer Est GFR (MDRD) Non-Af BUN/Creatinine Ratio Glucose Hemoglobin A1c Calcium Total Bilirubin AST ALT Alkaline Phosphatase Total Protein Albumin Globulin Albumin/Globulin Ratio Procalcitonin 1.42 H CSF Appearance CSF Color CSF WBC CSF RBC CSF Cell Count Tube # CSF Total Cell Counted CSF Lymphocytes CSF Comment CSF Glucose CSF Total Protein 05/08/21 05/08/21 05/08/21 04:58 09:43 09:43 WBC RBC Hgb Hct MCV MCH MCHC RDW Std Deviation RDW Coeff of Anurag Plt Count MPV Immature Gran % (Auto) Neut % (Auto) Lymph % (Auto) [place] % (Auto) Eos % (Auto) Baso % (Auto) Absolute Neuts (auto) Absolute Lymphs (auto) Nucleated RBC % APTT Sodium 137 Potassium 3.6 Chloride 105 Carbon Dioxide 25.0 Anion Gap 7 BUN 10 Creatinine 1.22 Estim Creat Clear Calc 90.87 Est GFR (MDRD) Af Amer 87 Est GFR (MDRD) Non-Af 72 BUN/Creatinine Ratio 8.2 L Glucose 130 H Hemoglobin A1c Calcium 7.7 L Total Bilirubin 0.50 AST 50 H ALT 77 H Alkaline Phosphatase 54 Total Protein 6.2 L Albumin 3.0 L Globulin 3.2 Albumin/Globulin Ratio 0.9 Procalcitonin CSF Appearance CLEAR CSF Color COLORLESS CSF WBC 0 CSF RBC 4 H CSF Cell Count Tube # 3 CSF Total Cell Counted TNP CSF Lymphocytes 100 H CSF Comment May follow CSF Glucose 78 H CSF Total Protein 71.0 H Micro: Microbiology 05/08/21 09:43 Gram Stain - Final Csf, Spinal Fluid Radiology Impression Brain CT 05/08/21 02:25 IMPRESSION: Negative CT brain without contrast. Electronically Signed: Dandy Tolentino MD at 3:18 EDT Tel , Service support , Lumbar Puncture Fluoroscopy 05/08/21 05:55 IMPRESSION: Successful fluoroscopic-guided lumbar puncture. Electronically Signed: Clinton Wilkinson MD at 10:10 EDT , Service support , Chest X-Ray 05/08/21 09:14 IMPRESSION: Increased markings at the lung bases more prominent on the right side suggestive of either atelectasis and/or early infiltrates. Electronically Signed: Clinton Wilkinson MD at 9:32 EDT , Service support ,
[2021-05-08] MEDS: oxyCODONE 5 MG Tablet PO (19:57)
[2021-05-08] MEDS: BENZOCAINE/MENTHOL 1 LOZENGE MUCOUS MEM (19:57)
[2021-05-09] VITALS (7 sets, daily range): BP systolic 110–126; BP diastolic 66–77; PULSE 60–78; RESP 16–18; TEMP 36.4–36.7; O2SAT 96–99
[2021-05-09] MEDS: 0.9% Normal Saline 1,000 ML 150 ML IV ×2 (02:06→10:14)
[2021-05-09] MEDS: oxyCODONE 5 MG Tablet PO (02:09)
[2021-05-09] MEDS: BENZOCAINE/MENTHOL 1 LOZENGE MUCOUS MEM (05:06)
[2021-05-09 05:16] LABS: Absolute Lymphocyte Count 0.75 X10^3/uL (0.83-4.51); Absolute Neutrophil Count 7.3 X10^3/uL (2.0-7.7); Basophil# 0.01 X10^3/uL; Basophil% 0.1 % (0-1); Hematocrit 38.2 % (40-54); Hemoglobin 12.7 g/dL (13.0-16.5); Lymphocyte # 0.75 X10^3/ul (0.83-4.51); Lymphocyte % 8.7 % (19-41); Mean Corp Hgb Conc 33.2 g/dL (32-36); Mean Corpuscular Hgb 29.7 pg (27.0-32.0); Mean Corpuscular Volume 89.5 fL (80-94); Mean Platelet Vol. 9.6 fl (6.2-12.0); Monocyte# 0.48 X10^3/uL; Monocyte% 5.6 % (0-10); NRBC Flagged by Analyzer 0 % (0-5); Neutrophil # 7.29 X10^3/uL (2.7-7.7); Platelet Count 183 K/mm3 (150-450); RBC Distribution Width CV 12.5 % (11.6-14.6); RBC Distribution Width SD 41.4 fl (35.1-43.9); Red Blood Count 4.27 M/mm3 (4.6-6.2); White Blood Count 8.6 K/mm3 (4.4-11.0)
[2021-05-09 05:28] LABS: Anion Gap 6 (5-15); BUN 11 mg/dL (7-18); BUN/Creat Ratio 13.1 RATIO (10-20); Calcium,Total 8.1 mg/dL (8.5-10.1); Chloride 107 mmol/L (98-107); Creatinine, Serum 0.84 mg/dL (0.70-1.30); EST Glomerular Filtration Rate 111 mL/min (>60); Est Glom Filt Rate - Afr Amer 135 mL/min (>60); Estimated Creatinine Clearance 131.97 ml/min; Glucose 161 mg/dL (74-106); Sodium Level 139 mmol/L (136-145)
[2021-05-09 05:42] LABS: Vancomycin, Trough Level 12.8 ug/mL (5.0-15.0)
--- NOTE | 2021-05-09 06:06 | PCM.RX.CS ---
Consult Pharmacy has been consulted to manage selected antiobiotic: Vancomycin Type of Consult: Follow-up Labs: Sodium 139 mmol/L (136-145) 05/09/21 04:54 Potassium 4.0 mmol/L (3.5-5.1) 05/09/21 04:54 Chloride 107 mmol/L (98-107) 05/09/21 04:54 Carbon Dioxide 26.0 mmol/L (21.0-32.0) 05/09/21 04:54 Anion Gap 6 (5-15) 05/09/21 04:54 BUN 11 mg/dL (7-18) 05/09/21 04:54 Creatinine 0.84 mg/dL (0.70-1.30) 05/09/21 04:54 Est GFR (MDRD) Af Amer 135 mL/min (>60) 05/09/21 04:54 Est GFR (MDRD) Non-Af 111 mL/min (>60) 05/09/21 04:54 BUN/Creatinine Ratio 13.1 RATIO (10-20) 05/09/21 04:54 Glucose 161 mg/dL (74-106) H 05/09/21 04:54 Vancomycin Trough 12.8 ug/mL (5.0-15.0) 05/09/21 04:54 Microbiology: Microbiology 05/08/21 09:43 Csf, Spinal Fluid Gram Stain - Final Goal Trough: 15-20 mcg/mL Pharmacy Plan for Drug Dosing: Pharmacy Service will continue to monitor and adjust dosing as required. SCr DECREASED TO 0.84 AND TROUGH 12.8 INCREASE DOSE TO 1750 Q8H Follow-Up Labs: Trough Vancomycin Labs to be done on [date and time ordered]: 05/10 @ 1300
[2021-05-09] MEDS: guaiFENesin 10 ML UDC (200MG/10ML) 20 ML PO (09:03)
[2021-05-09] MEDS: Famotidine 20 MG Tablet PO (10:20)
--- NOTE | 2021-05-09 10:44 | PN.ID_ITS ---
Physical Exam Narrative Feeling much better, no further fever, headache improved. Aches much better. Still dry cough. Const alert and no apparent distress General Appearance: cooperative Resp normal air movement and clear to auscultation bilaterally Cardio regular rate and regular rhythm GI normal to inspection, nondistended, normoactive bowel sounds Extremity no clubbing, cyanosis or edema ID ID: Route of nutrition/ use of supplements: [] Nutritional Intake: [] IV Site: [] Tello Catheter: [] Assessment & Plan Assessment/Plan (1) Acute febrile illness: PLAN: Unclear source. With lymphopenia, body aches, fever, headache, diarrhea. Did have covid and has been vaccinated. Rapid covid Ag was neg, pcr was neg. With rash on leg, pending Lyme disease, though it may be too early in disease to seroconvert. CSF wbc was 0, so no evidence of meningitis. Cont vanc/ceftriaxone for now. Feeling better. Ok for discharge to complete pre viously prescribed 10 day course of doxy, will write for keflex and probiotic. Will follow as needed after discharge, d/w primary team.
--- NOTE | 2021-05-09 10:52 | DCINST_ITS ---
Discharge Instructions Diet Discharge Diet: 2000 mg Sodium Diet Activity Discharge Activity: Return to Normal Activity and May Not Drive (Advised not driving for 2 to 3 days until afebrile.Follow with PCP) Weight Bearing Status: Weight bearing as tolerated Dressing / Incision Call your doctor if you observe: Fever of 101 or Higher, Coldness, Increased Pain, Numbness or Tingling, Change in Color, Inability to urinate, Inability to have a bowel movement, Shortness of breath, Dizziness, Fainting spells, Swelling in the ankles, Chest pain, Prolonged hiccupping, Increased palpitations (irregular heartbeat), Calf discomfort and Uncontrolled pain Follow Up Care Test Results: Test results from this visit will be discussed in further detail a t your follow-up appointment, if applicable. Discharge Plan Admission Admit Date/Time: 05/08/21 02:25 Primary Reason for Your Visit: Acute viral syndrome Attending Provider: Lobo Cardona Primary Care Provider: Phan Alicia Consulting Providers: Lawrence Conley Instructions Patient Instructions: Lumbar Puncture Additional Instructions / Restrictions: OTC ibuprofen advised 400 mg every 6 hourly as needed for headache or body aches and pains. Patient had childhood one-time incidence of abdominal pain, nausea with ibuprofen therefore listed as allergy but he did not had allergic rash or stridor or angioedema Discharge Orders/Prescriptions Prescriptions: New Lactobacillus acidophilus Capsule 100 mg PO DAILY Qty: 10 RF: 0 cephalexin 500 mg capsule 500 mg PO TID Qty: 20 RF: 0 pseudoephedrine-guaifenesin [Mucinex D] 60-600 mg tablet extended release 12 hr 2 tab PO BID Qty: 30 RF: 0 Continued doxycycline hyclate 100 mg tablet 100 mg PO BID Qty: 20 RF: 0 No Action Vitamin D2 1,000 unit Capsule 1,000 unit PO DAILY RF: 0 Referrals / Follow Up: Lawrence Conley MD [STAFF PHYSICIAN] - Within 2 Weeks (Call Dr. Toscano as needed for fever and lab results) Phan Alicia MD [Primary Care Provider] - In 1 Week (Follow-up CBC, BMP, liver chemistry in 1 week PCP) Disposition Disposition (needs filled in before D/C Order can be placed): Home, Self Care
--- NOTE | 2021-05-09 10:52 | PCM.DC.SUM ---
Providers Date of Admission: 05/08/21 Primary Care Physician: Dr. Phan Alicia MD Consultations 05/08/21 03:59 Consult: Infectious Disease Routine Consulting Provider: Lawrence Conley Reason for Consult: Possible meningitis, sepsis w/ R leg small focal region cellulitis. EMERGENT Consult: No MD Notified: Yes Date Notified: 05/08/21 Time Notified: 06:45 Method of Notification: Text Reason For Visit: SEPSIS,CELLULITIS, C/O MENINGITIS VS INTRACTABLE Diagnosis Discharge Diagnosis (1) Acute febrile illness: Status: Acute Code(s): R50.9 - Fever, unspecified Medications at Discharge Home Medications doxycycline hyclate 100 mg PO BID #20 tab 05/07/21 ergocalciferol (vitamin D2) [Vitamin D2] 1,000 unit PO DAILY 05/08/21 Lactobacillus acidophilus 100 mg PO DAILY #10 cap 05/09/21 cephalexin 500 mg PO TID #20 cap 05/09/21 pseudoephedrine-guaifenesin [Mucinex D] 2 tab PO BID #30 tab 05/09/21 Hospital Course Summary of Care Provided Hospital Course: This 36-year-old gentleman was admitted to PCU with fever, 104.5 Fahrenheit and other symptoms of generalized body aches, weakness, headache and dry cough for last 4 days. Patient also had right retro-orbital pain which got improved. Initially patient was started on vancomycin, ceftriaxone and acyclovir but later on antibiotics changed to oral. Patient had fluoroscopy guided lumbar puncture which showed RBC 4, WBC 0, lymphocytes, glucose 78, total protein 71. CSF Gram stain does not show organism and culture showed no growth.. COVID-19 PCR negative.Lyme serology, West Nile RNA enterovirus and HSV 1 and 2 are pending. Procalcitonin elevated. No fever, leukocytosis patient was seen by ID and discussed with with him. Patient is being discharged on 10-day course of doxycycline, Keflex and probiotic. Mucinex D for symptomatic relief for cough and ibuprofen 400 mg every 6 hours as needed for fever or body aches. Patient does not have true allergy with ibuprofen as he tolerated in inpatient. He had mild abdominal pain and nausea with ibuprofen in childhood but not had rash or angioedema or shortness of breath. Patient had hyperglycemia advised follow-up with PCP. A1c 5.3 is normal. Discharge medication reconciliation done. Discharge follow-up instructions completed. Discharge process discussed with the patient and all questions were answered to patient's satisfaction. Discharge process discussed with patient and his near the bedside in detail advised to follow-up PCP and ID Dr. Tan. Total time spent, exact 35 minutes on discharge meds reconciliation, examination, coordination of care with nurses and ancillary staff, review of imaging and blood test and discussion with the patient on follow-up instructions Physical Exam Narrative Seen and examined. Not had any fever or chills. Patient has persistent cough dry. Headache is almost resolved. Right thigh rash is fading away. Physical exam General: Alert, Oriented x3, Cooperative HEENT: Atraumatic, PERRLA, EOMI, Normocephalic Oral: No Gingival or Mucosal Lesions/ Ulcerations. No posterior pharyngeal erythema. Neck: Supple, No JVD, Negative Carotid Bruits Lungs: Air entry equal in bilateral lung bases. No crepitation/rhonchi Cardiovascular: Regular rate, Regular Rhythm, Normal S1, Normal S2, No murmurs Abdomen: Bowel Sounds Present, Soft, Non Tender, Non-Distended : No renal angle tenderness. No suprapubic tenderness. Extremities: No edema, Capillary Refill Less than 3 Seconds Skin: Mild erythematous rash over right thigh, fading away. No open ulcer. Musculoskeletal: No Tenderness to Palpation of Joints or Extremities Neurological: Cranial nerves II-XII grossly intact, Deep Tendon Reflexes 2+/4 and Symmetrical, Neuro grossly intact Psych/Mental Status: Normal Affect, Appropriate. Weight / BMI Weight Weight: 253 lb 1.451 oz Body Mass Index (BMI) 35.3 ABG / Lab / Microbiology Data Result Diagrams: 05/09/21 04:54 05/09/21 04:54 Laboratory: Laboratory Results - last 24 hr 05/08/21 05/08/21 05/08/21 09:43 09:43 13:00 WBC RBC Hgb Hct MCV MCH MCHC RDW Std Deviation RDW Coeff of Aunrag Plt Count MPV Immature Gran % (Auto) Neut % (Auto) Lymph % (Auto) [place] % (Auto) Eos % (Auto) Baso % (Auto) Absolute Neuts (auto) Absolute Lymphs (auto) Nucleated RBC % Sodium Potassium Chloride Carbon Dioxide Anion Gap BUN Creatinine Estim Creat Clear Calc Est GFR (MDRD) Af Amer Est GFR (MDRD) Non-Af BUN/Creatinine Ratio Glucose Calcium CSF Appearance CLEAR CSF Color COLORLESS CSF WBC 0 CSF RBC 4 H CSF Cell Count Tube # 3 CSF Total Cell Counted TNP CSF Lymphocytes 100 H CSF Comment May follow CSF Glucose 78 H CSF Total Protein 71.0 H Vancomycin Trough COVID-19 ([place]) Not Detected 05/09/21 05/09/21 05/09/21 04:54 04:54 04:54 WBC 8.6 RBC 4.27 L Hgb 12.7 L Hct 38.2 L MCV 89.5 MCH 29.7 MCHC 33.2 RDW Std Deviation 41.4 RDW Coeff of Anurag 12.5 Plt Count 183 MPV 9.6 Immature Gran % (Auto) 0.600 Neut % (Auto) 85.0 H Lymph % (Auto) 8.7 L [place] % (Auto) 5.6 Eos % (Auto) 0.0 Baso % (Auto) 0.1 Absolute Neuts (auto) 7.3 Absolute Lymphs (auto) 0.75 L Nucleated RBC % 0 Sodium 139 Potassium 4.0 Chloride 107 Carbon Dioxide 26.0 Anion Gap 6 BUN 11 Creatinine 0.84 Estim Creat Clear Calc 131.97 Est GFR (MDRD) Af Amer 135 Est GFR (MDRD) Non-Af 111 BUN/Creatinine Ratio 13.1 Glucose 161 H Calcium 8.1 L CSF Appearance CSF Color CSF WBC CSF RBC CSF Cell Count Tube # CSF Total Cell Counted CSF Lymphocytes CSF Comment CSF Glucose CSF Total Protein Vancomycin Trough 12.8 COVID-19 ([place]) Microbiology: Microbiology 05/08/21 09:43 Gram Stain - Final Csf, Spinal Fluid CSF Culture - Preliminary Culture exhibits no growth. Microbiology 05/08/21 09:43 Csf, Spinal Fluid Gram Stain - Final 05/08/21 09:43 Csf, Spinal Fluid CSF Culture - Preliminary Culture exhibits no growth. Meaningful Use Info Meaningful Use Diagnoses (Choose all that apply): None applicable Discharge Plan Admission Admit Date/Time: 05/08/21 02:25 Primary Reason for Your Visit: Acute viral syndrome Attending Provider: Lobo Cardona Primary Care Provider: Phan Alicia Consulting Providers: Lawrence Conley Instructions Patient Instructions: Lumbar Puncture Additional Instructions / Restrictions: OTC ibuprofen advised 400 mg every 6 hourly as needed for headache or body aches and pains. Patient had childhood one-time incidence of abdominal pain, nausea with ibuprofen therefore listed as allergy but he did not had allergic rash or stridor or angioedema Discharge Orders/Prescriptions Prescriptions: New Lactobacillus acidophilus Capsule 100 mg PO DAILY Qty: 10 RF: 0 cephalexin 500 mg capsule 500 mg PO TID Qty: 20 RF: 0 pseudoephedrine-guaifenesin [Mucinex D] 60-600 mg tablet extended release 12 hr 2 tab PO BID Qty: 30 RF: 0 Continued doxycycline hyclate 100 mg tablet 100 mg PO BID Qty: 20 RF: 0 No Action Vitamin D2 1,000 unit Capsule 1,000 unit PO DAILY RF: 0 Referrals / Follow Up: Lawrence Conley MD [STAFF PHYSICIAN] - Within 2 Weeks (Call Dr. Toscano as needed for fever and lab results) Phan Alicia MD [Primary Care Provider] - In 1 Week (Follow-up CBC, BMP, liver chemistry in 1 week PCP) Disposition Disposition (needs filled in before D/C Order can be placed): Home, Self Care Charges/Coding Visit Charges Inpatient E&M: 08355 Disch Hosp
[2021-05-09 11:15] LABS: AST(SGOT) 69 U/L (15-37); Alanine Aminotransfer ALT/SGPT 117 U/L (16-61); Alkaline Phosphatase 64 U/L (45-117); Bilirubin, Direct 0.14 mg/dL (0.00-0.30); Globulin 3.6 g/dL (2.2-4.2); Protein, Total 6.6 g/dL (6.4-8.2)
[2021-05-09] MEDS: Ibuprofen 200 MG Tablet PO (11:31)
[2021-05-09 12:08] LABS: Pathologist Review Reviewed
[2021-05-16 03:07] LABS: Lyme IgG P18 Ab Absent (.); Lyme IgG P23 Ab Absent (.); Lyme IgG P28 Ab Absent (.); Lyme IgG P30 Ab Absent (.); Lyme IgG P39 Ab Absent (.); Lyme IgG P41 Ab Absent (.); Lyme IgG P45 Ab Absent (.); Lyme IgG P58 Ab Absent (.); Lyme IgG P66 Ab Absent (.); Lyme IgG P93 Ab Absent (.); Lyme IgM P23 Ab Absent (.); Lyme IgM P39 Ab Absent (.); Lyme IgM P41 Ab Absent (.)
[2021-05-16 07:41] LABS: Lyme IgG WB Interpretation Negative (.); Lyme IgM WB Interpretation Negative (.)
[2021-05-20 20:09] LABS: HSV 1 By PCR Negative (Negative)
[2021-05-20 20:21] LABS: Enterovirus By PCR Negative (Negative); HSV 2 By PCR Negative (Negative); West Nile Virus Qual by PCR Negative (.)
== END 2021-05-09 16:23 | disposition home or self-care (01) | DRG 872 ==
LOC: ED 01:14 → PCU 02:43
PROVIDERS: Internal Medicine Infectious Disease; Nurse Practitioner Family; Physician Assistant; Admitting Provider Family Medicine; Emergency Provider Emergency Medicine; PCP Family Medicine; Visit Provider Internal Medicine
DX: A41.9 Sepsis, unspecified organism (principal); L03.115 Cellulitis of right lower limb; G43.109 Migraine with aura, not intractable, without status migrainosus; E66.9 Obesity, unspecified; Z86.16 Personal history of COVID-19; R73.9 Hyperglycemia, unspecified; J30.2 Other seasonal allergic rhinitis; Z68.34 Body mass index [BMI] 34.0-34.9, adult
CPT/HCPCS: 36415; 62328; 70450; 71046; 80048; 80053; 80076; 80202; 82945; 83036; 84145; 84157; 85025; 85730; 86617; 87070; 87205; 87498; 87529; 87635; 87798; 88108; 88313; 89050; 89051; 99283; J7030; J7040; U0005; A4216; J0696; U0003

== ENCOUNTER 2022-01-10 06:18 | Outpatient (CLI) | payer OTHER, SELFPAY ==
--- NOTE | 2022-01-10 06:29 | RAD_ITS ---
STUDY: X-RAY CHEST REASON FOR EXAM: Male, 36 years old. Chest pain and chest discomfort. TECHNIQUE: PA and lateral views of the chest. COMPARISON: Comparison is made with prior study dated 05/08/2021. FINDINGS: The lungs are clear and expanded. There is no demonstrated pleural abnormality. Normal size heart. Normal mediastinum and hiram. Normal visualized pulmonary arteries. Normal visualized aortic arch and descending thoracic aorta. Normal visualized thoracic spine. Normal visualized ribs, clavicles, and shoulders. There is no demonstrated abnormality of the visualized soft tissue structures of the upper abdomen. RAD/Chest PA and Lateral IMPRESSION: Normal x-ray examination of the chest. Electronically Signed: Clinton Wilkinson MD at 14:50 EST ,
[2022-01-10 07:21] LABS: Absolute Neutrophil Count 4.2 X10^3/uL (2.0-7.7); Basophil# 0.06 X10^3/uL; Basophil% 0.8 % (0-1); Eosinophil# 0.06 X10^3/uL; Eosinophils% 0.8 % (0-5); Hematocrit 44.4 % (40-54); Hemoglobin 15.4 g/dL (13.0-16.5); Lymphocyte % 28.1 % (19-41); Mean Corp Hgb Conc 34.7 g/dL (32-36); Mean Corpuscular Hgb 31.4 pg (27.0-32.0); Mean Corpuscular Volume 90.4 fL (80-94); Mean Platelet Vol. 9.8 fl (6.2-12.0); Monocyte# 0.74 X10^3/uL; Monocyte% 10.4 % (0-10); NRBC Flagged by Analyzer 0 % (0-5); Neutrophil # 4.23 X10^3/uL (2.7-7.7); Neutrophil % 59.5 % (47-70); Platelet Count 242 K/mm3 (150-450); RBC Distribution Width CV 12.1 % (11.6-14.6); RBC Distribution Width SD 40.1 fl (35.1-43.9); Red Blood Count 4.91 M/mm3 (4.6-6.2); White Blood Count 7.1 K/mm3 (4.4-11.0)
[2022-01-10 07:44] LABS: ALB/GLOB Ratio 1.1 RATIO (0.9-2.4); AST(SGOT) 34 U/L (15-37); Alanine Aminotransfer ALT/SGPT 88 U/L (16-61); Alkaline Phosphatase 52 U/L (45-117); Anion Gap 4 (5-15); BUN 17 mg/dL (7-18); BUN/Creat Ratio 16.8 RATIO (10-20); Calcium,Total 8.9 mg/dL (8.5-10.1); Chloride 102 mmol/L (98-107); Cholesterol 167 mg/dL (200); Creatinine, Serum 1.01 mg/dL (0.70-1.30); EST Glomerular Filtration Rate 89 mL/min (>60); Est Glom Filt Rate - Afr Amer 108 mL/min (>60); Globulin 3.7 g/dL (2.2-4.2); Glucose 98 mg/dL (74-106); High Density Lipoprotein 44 mg/dL; Potassium 4.1 mmol/L (3.5-5.1); Protein, Total 7.7 g/dL (6.4-8.2); Sodium Level 137 mmol/L (136-145); Triglycerides 139 mg/dL; Very Low Density Lipoprotein 28 mg/dL (5-40)
[2022-01-16 18:07] LABS: Lyme IgG P18 Ab Absent (.); Lyme IgG P23 Ab Absent (.); Lyme IgG P28 Ab Absent (.); Lyme IgG P30 Ab Absent (.); Lyme IgG P39 Ab Absent (.); Lyme IgG P41 Ab Present (.); Lyme IgG P45 Ab Absent (.); Lyme IgG P58 Ab Absent (.); Lyme IgG P66 Ab Absent (.); Lyme IgG P93 Ab Absent (.); Lyme IgM P23 Ab Absent (.); Lyme IgM P39 Ab Absent (.); Lyme IgM P41 Ab Present (.)
[2022-01-16 18:21] LABS: Lyme IgG WB Interpretation Negative (.); Lyme IgM WB Interpretation Negative (.)
== END 2022-01-10 23:59 | disposition home or self-care (01) ==
LOC: LAB 06:20
PROVIDERS: PCP Family Medicine; Referring Provider Family Medicine; Visit Provider Family Medicine
DX: Z00.00 Encounter for general adult medical examination without abnormal findings (principal); R53.83 Other fatigue; R07.9 Chest pain, unspecified
CPT/HCPCS: 36415; 71046; 80053; 80061; 85025; 86617

== ENCOUNTER → 2022-10-28 | Outpatient (CLI) | payer OTHER, SELFPAY ==
--- NOTE | 2022-10-28 16:20 | RAD_ITS ---
STUDY: X-RAY CHEST REASON FOR EXAM: Male, 37 years old. PROLONGED COUGH TECHNIQUE: PA and lateral views of the chest. COMPARISON: 01/10/2022 FINDINGS: The lungs are clear and expanded. There is no demonstrated pleural abnormality. Normal size heart. Normal mediastinum and hiram. Normal visualized pulmonary arteries. Normal visualized aortic arch and descending thoracic aorta. Normal visualized thoracic spine. Normal visualized ribs, clavicles, and shoulders. There is no demonstrated abnormality of the visualized soft tissue structures of the upper abdomen. RAD/Chest PA and Lateral IMPRESSION: Normal x-ray examination of the chest. Electronically Signed: Gordo Miranda MD at 23:23 [facility] ,
== END | disposition home or self-care (01) ==
LOC: RAD 16:14
PROVIDERS: PCP Family Medicine; Referring Provider Family Medicine; Visit Provider Family Medicine
DX: R05.9 Cough, unspecified (principal)
CPT/HCPCS: 71046

== ENCOUNTER → 2024-01-15 | Outpatient (CLI) | payer OTHER, SELFPAY ==
--- NOTE | 2024-01-15 10:08 | RAD_ITS ---
INDICATION: Lumbar pain EXAMINATION/TECHNIQUE: X-RAY - XR Spine Lumbar Min 4 Views COMPARISON: No relevant prior comparison study available FINDINGS: VERTEBRAE: Preserved vertebral body height. No fracture. No spondylolisthesis. Preservation of the normal lumbar lordosis. Minimal levoscoliosis. DISCS: Disc spaces are maintained. INCLUDED ABDOMEN: Included bowel gas pattern is non-obstructive. RAD/L/S Spine Min 4 Views IMPRESSION: No demonstrated acute changes. Electronically Signed: James Wakefield MD at 10:23 EST ,
== END | disposition home or self-care (01) ==
PROVIDERS: PCP Family Medicine; Referring Provider Physician Assistant Surgical; Visit Provider Physician Assistant Surgical
DX: S39.012A Strain of muscle, fascia and tendon of lower back, initial encounter (principal); X58.XXXA Exposure to other specified factors, initial encounter
CPT/HCPCS: 72110

== ENCOUNTER → 2024-08-10 | Outpatient (CLI) | payer OTHER, SELFPAY ==
[2024-08-10 07:34] LABS: Absolute Neutrophil Count 4.5 X10^3/uL (2.0-7.7); Basophil# 0.06 X10^3/uL; Basophil% 0.8 % (0-1); Eosinophil# 0.09 X10^3/uL; Eosinophils% 1.2 % (0-5); Hematocrit 44.9 % (40-54); Hemoglobin 14.8 g/dL (13.0-16.5); Lymphocyte % 27.8 % (19-41); Mean Corpuscular Hgb 29.8 pg (27.0-32.0); Mean Corpuscular Volume 90.5 fL (80-94); Mean Platelet Vol. 9.4 fl (6.2-12.0); Monocyte# 0.71 X10^3/uL; Monocyte% 9.4 % (0-10); NRBC Flagged by Analyzer 0 % (0-5); Neutrophil # 4.49 X10^3/uL (2.7-7.7); Neutrophil % 59.3 % (47-70); Platelet Count 304 K/mm3 (150-450); RBC Distribution Width SD 39.8 fl (35.1-43.9); Red Blood Count 4.96 M/mm3 (4.6-6.2); White Blood Count 7.6 K/mm3 (4.4-11.0)
[2024-08-10 08:33] LABS: ALB/GLOB Ratio 1.1 RATIO (0.9-2.4); AST(SGOT) 23 U/L (15-37); Alanine Aminotransfer ALT/SGPT 53 U/L (16-61); Alkaline Phosphatase 50 U/L (45-117); Anion Gap 7 (5-15); BUN 15 mg/dL (7-18); Calcium,Total 9.3 mg/dL (8.5-10.1); Chloride 105 mmol/L (98-107); Cholesterol 171 mg/dL (200); Creatinine, Serum 1.07 mg/dL (0.70-1.30); EST Glomerular Filtration Rate 82 mL/min (>60); Est Glom Filt Rate - Afr Amer 100 mL/min (>60); Globulin 3.5 g/dL (2.2-4.2); Glucose 95 mg/dL (74-106); High Density Lipoprotein 47 mg/dL; Potassium 4.2 mmol/L (3.5-5.1); Protein, Total 7.5 g/dL (6.4-8.2); Sodium Level 138 mmol/L (136-145); Triglycerides 163 mg/dL; Very Low Density Lipoprotein 33 mg/dL (5-40)
== END | disposition home or self-care (01) ==
LOC: LAB 06:44
PROVIDERS: PCP Family Medicine; Referring Provider Family Medicine; Visit Provider Family Medicine
DX: Z00.00 Encounter for general adult medical examination without abnormal findings (principal); Z13.1 Encounter for screening for diabetes mellitus; Z13.220 Encounter for screening for lipoid disorders; R53.83 Other fatigue
CPT/HCPCS: 36415; 80053; 80061; 82306; 84443; 85025

== ENCOUNTER → 2025-05-15 | Outpatient (CLI) | payer OTHER, SELFPAY | END | disposition home or self-care (01) | LOC: MTRAD 15:12 | PROVIDERS: PCP Family Medicine; Referring Provider Family Medicine; Visit Provider Family Medicine | DX: R10.32 Left lower quadrant pain (principal); K58.2 Mixed irritable bowel syndrome | CPT/HCPCS: 74022 ==